=== PATIENT | female | born 1955 | race Caucasian/White ===

== ENCOUNTER 2021-09-28 18:33 | Observation (INO) ==
[2021-09-28] MEDS ORDERED: DILAUDID INJ IVP PRN (20:26)
[2021-09-28] MEDS: D5 1/2 NS 1,000 ML 1,000 ML IV SCH (21:05)
[2021-09-28] MEDS: COLACE CAP 100 MG PO SCH (21:05)
[2021-09-28 21:18] LABS: BASOPHILS # (AUTO) 0.1 X10^3/uL (0.0-0.1); BASOPHILS % (AUTO) 0.7 % (0.2-1.0); EOSINOPHILS # (AUTO) 0.3 x10^3/uL (0.0-0.2); EOSINOPHILS % (AUTO) 3.1 % (0.9-2.9); HEMATOCRIT 40.1 % (36.0-47.0); HEMOGLOBIN 13.7 g/dL (12.0-16.0); LYMPHOCYTES # (AUTO) 2.6 X10^3/uL (1.3-2.9); LYMPHOCYTES % (AUTO) 23.4 % (21.0-51.0); MEAN CORPUSCULAR HEMOGLOBIN 29.9 pg (27.0-34.0); MEAN CORPUSCULAR HGB CONC 34.2 g/dL (33.0-35.0); MEAN CORPUSCULAR VOLUME 87.2 fL (80.0-100.0); MEAN PLATELET VOLUME 7.8 fL (7.4-11.0); MONOCYTES # (AUTO) 1.2 x10^3/uL (0.3-0.8); NEUTROPHILS # (AUTO) 6.9 x10^3/uL (2.2-4.8); NEUTROPHILS % (AUTO) 61.8 % (42.0-75.0); RED BLOOD COUNT 4.59 X10^6/uL (3.5-5.4); RED CELL DISTRIBUTION WIDTH 12.8 % (11.6-16.5); WHITE BLOOD COUNT 11.2 X10^3/uL (3.6-10.0)
[2021-09-28 21:28] LABS: ALANINE AMINOTRANSFERASE 31 Units/L (12-78); ALBUMIN 3.2 g/dL (3.4-5.0); ALKALINE PHOSPHATASE 96 Units/L (46-116); ASPARTATE AMINO TRANSFERASE 16 Units/L (15-37); BLOOD UREA NITROGEN 26 mg/dL (7-18); CALCIUM 9.1 mg/dL (8.5-10.1); CARBON DIOXIDE 29.6 mmol/L (21-32); CHLORIDE 99 mmol/L (98-107); COR CA(FOR HYPOALB) 9.7 mg/dL (8.5-10.1); COR NA(FOR HYPERGLY) 139 mmol/L (136-145); CREATININE 1.07 mg/dL (0.55-1.02); SODIUM 136 mmol/L (136-145); TOTAL PROTEIN 6.9 g/dL (6.4-8.2); eGFR NON BLACK RACES 55 (>60)
[2021-09-28 21:45] VITALS: BMI 29.9
[2021-09-28] MEDS: ANCEF VIAL 1 GRAM IVP SCH ×2 (22:43→22:44)
[2021-09-28] MEDS: ZOFRAN INJ 4 MG VIAL IVP PRN (22:54)
[2021-09-29] MEDS: BETADINE SOLN TOP SCH ×6 (00:37→22:31)
[2021-09-29 05:16] LABS: BASOPHILS # (AUTO) 0.1 X10^3/uL (0.0-0.1); BASOPHILS % (AUTO) 0.5 % (0.2-1.0); EOSINOPHILS # (AUTO) 0.1 x10^3/uL (0.0-0.2); EOSINOPHILS % (AUTO) 1.1 % (0.9-2.9); HEMATOCRIT 36.1 % (36.0-47.0); HEMOGLOBIN 12.3 g/dL (12.0-16.0); LYMPHOCYTES # (AUTO) 2.7 X10^3/uL (1.3-2.9); LYMPHOCYTES % (AUTO) 25.4 % (21.0-51.0); MEAN CORPUSCULAR HEMOGLOBIN 29.8 pg (27.0-34.0); MEAN CORPUSCULAR VOLUME 87.6 fL (80.0-100.0); MONOCYTES % (AUTO) 9.3 % (0.0-13.0); NEUTROPHILS # (AUTO) 6.8 x10^3/uL (2.2-4.8); NEUTROPHILS % (AUTO) 63.7 % (42.0-75.0); RED BLOOD COUNT 4.12 X10^6/uL (3.5-5.4); RED CELL DISTRIBUTION WIDTH 12.6 % (11.6-16.5); WHITE BLOOD COUNT 10.7 X10^3/uL (3.6-10.0)
[2021-09-29 05:27] LABS: ALANINE AMINOTRANSFERASE 28 Units/L (12-78); ALBUMIN 2.9 g/dL (3.4-5.0); ALKALINE PHOSPHATASE 85 Units/L (46-116); ASPARTATE AMINO TRANSFERASE 14 Units/L (15-37); BLOOD UREA NITROGEN 26 mg/dL (7-18); CALCIUM 8.8 mg/dL (8.5-10.1); CARBON DIOXIDE 29.7 mmol/L (21-32); CHLORIDE 100 mmol/L (98-107); COR CA(FOR HYPOALB) 9.7 mg/dL (8.5-10.1); COR NA(FOR HYPERGLY) 139 mmol/L (136-145); CREATININE 1.07 mg/dL (0.55-1.02); SODIUM 135 mmol/L (136-145); TOTAL PROTEIN 6.2 g/dL (6.4-8.2); eGFR NON BLACK RACES 55 (>60)
[2021-09-29] MEDS: ANCEF VIAL 1 GRAM IVP SCH (05:40)
[2021-09-29] MEDS: PERCOCET TAB 5/325 MG PO PRN ×4 (06:11→18:17)
[2021-09-29] MEDS: COLACE CAP 100 MG PO SCH ×2 (08:06→21:49)
[2021-09-29] MEDS: D5 1/2 NS 1,000 ML 1,000 ML IV SCH (08:10)
--- NOTE | 2021-09-29 10:28 | DR.PROGNOT ---
Hospital Progress Notes - Progress Note for Day of: Progress Note Date: 09/29/21 - Chief Complaint Chief Complaint: less pain today .. mild bleeding .. afebrile . - Past Medical Family Social History Allergies: Allergies aspirin Allergy (Intermediate, Verified 09/21/21 07:05) stomach problems "Stomach feels like it is on fire" - Review Of Systems ROS: No change since H&P - Vital Signs Vital Signs: Temperature 97.9 F Pulse Rate [Apical] 79 Respiratory Rate 18 Blood Pressure [Right Arm] 111/55 Blood Pressure 111/59 O2 Sat by Pulse Oximetry 96 - Physical Exam Oriented: Normal Eyes: Normal Ear: Normal Nose: Normal Throat: Normal Respiratory: Normal Cardiovascular: Normal : Normal GI:Auscultation: Normal GI:Palpation: Normal GI: Tenderness: Normal Psychiatric: Normal Speech Pattern: Clear, Appropriate - Laboratory and Diagnostics Result Diagrams: 09/29/21 04:30 09/29/21 04:30 Labs: Laboratory WBC 10.7 X10^3/uL (3.6-10.0) H 09/29/21 04:30 RBC 4.12 X10^6/uL (3.5-5.4) 09/29/21 04:30 Hgb 12.3 g/dL (12.0-16.0) 09/29/21 04:30 Hct 36.1 % (36.0-47.0) 09/29/21 04:30 MCV 87.6 fL (80.0-100.0) 09/29/21 04:30 MCH 29.8 pg (27.0-34.0) 09/29/21 04:30 MCHC 34.0 g/dL (33.0-35.0) 09/29/21 04:30 RDW 12.6 % (11.6-16.5) 09/29/21 04:30 Plt Count 293 X10^3/uL (150.0-450.0) 09/29/21 04:30 MPV 8.0 fL (7.4-11.0) 09/29/21 04:30 Neut % (Auto) 63.7 % (42.0-75.0) 09/29/21 04:30 Lymph % (Auto) 25.4 % (21.0-51.0) 09/29/21 04:30 [place] % (Auto) 9.3 % (0.0-13.0) 09/29/21 04:30 Eos % (Auto) 1.1 % (0.9-2.9) 09/29/21 04:30 Baso % (Auto) 0.5 % (0.2-1.0) 09/29/21 04:30 Neut # (Auto) 6.8 x10^3/uL (2.2-4.8) H 09/29/21 04:30 Lymph # (Auto) 2.7 X10^3/uL (1.3-2.9) 09/29/21 04:30 [place] # (Auto) 1.0 x10^3/uL (0.3-0.8) H 09/29/21 04:30 Eos # (Auto) 0.1 x10^3/uL (0.0-0.2) 09/29/21 04:30 Baso # (Auto) 0.1 X10^3/uL (0.0-0.1) 09/29/21 04:30 Absolute Nucleated RBC 0.0 /100WBC 09/29/21 04:30 Sodium 135 mmol/L (136-145) L 09/29/21 04:30 Corrected Sodium 139 mmol/L (136-145) 09/29/21 04:30 Potassium 4.4 mmol/L (3.5-5.1) 09/29/21 04:30 Chloride 100 mmol/L (98-107) 09/29/21 04:30 Carbon Dioxide 29.7 mmol/L (21-32) 09/29/21 04:30 BUN 26 mg/dL (7-18) H 09/29/21 04:30 Creatinine 1.07 mg/dL (0.55-1.02) H 09/29/21 04:30 Est GFR (MDRD) Af Amer > 60 (>60) 09/29/21 04:30 Est GFR (MDRD) Non-Af 55 (>60) L 09/29/21 04:30 Glucose 249 mg/dL (65-99) H 09/29/21 04:30 Calcium 8.8 mg/dL (8.5-10.1) 09/29/21 04:30 Corrected Calcium 9.7 mg/dL (8.5-10.1) 09/29/21 04:30 Total Bilirubin 0.20 mg/dL (0.2-1.0) 09/29/21 04:30 AST 14 Units/L (15-37) L 09/29/21 04:30 ALT 28 Units/L (12-78) 09/29/21 04:30 Alkaline Phosphatase 85 Units/L (46-116) 09/29/21 04:30 Total Protein 6.2 g/dL (6.4-8.2) L 09/29/21 04:30 Albumin 2.9 g/dL (3.4-5.0) L 09/29/21 04:30 Globulin 3.3 g/dL (2.5-4.5) 09/29/21 04:30 Albumin/Globulin Ratio 0.9 Ratio (1.1-2.1) L 09/29/21 04:30 SARS-CoV-2 (PCR) Negative (NEGATIVE) 09/28/21 19:40 - Assessment and Plan 1: severe rectalpain and bleeding .. s/p recent hemorrhoidectomy , partial sphincterotomy . HTYN, DM , anxiety .. on sitz bath , pain control , IVF and ABT ..
[2021-09-29] MEDS ORDERED: NS 100 ML IV 100 ML ONE (13:17)
[2021-09-29] MEDS: ANCEF VIAL 1 GRAM 1 G in NS 100 ML IV 100 ML IV SCH ×2 (13:25→21:49)
[2021-09-29] MEDS: DERMOPLAST PAIN RELIEF SPRAY TOP PRN (15:08)
[2021-09-29] MEDS: MORPHINE SULFATE INJ 4 MG IVP PRN ×2 (15:09→19:17)
[2021-09-29] MEDS: ZOFRAN INJ 4 MG VIAL IVP PRN (15:20)
[2021-09-29] MEDS: NovoLIN R (or HumuLIN R) SUBCUT PRN (16:52)
[2021-09-29] MEDS: NS 1/2 1,000 ML IV 1,000 ML IV SCH (18:08)
[2021-09-29] MEDS ORDERED: NS 1/2 1,000 ML IV 1,000 ML IV ONE (18:09)
[2021-09-29] MEDS: SNACK - Diabetic Appropriate PO SCH (20:30)
[2021-09-30] MEDS: PERCOCET TAB 5/325 MG PO PRN ×2 (03:00→08:41)
[2021-09-30 05:24] LABS: BASOPHILS % (AUTO) 0.5 % (0.2-1.0); EOSINOPHILS # (AUTO) 0.3 x10^3/uL (0.0-0.2); EOSINOPHILS % (AUTO) 3.5 % (0.9-2.9); HEMATOCRIT 36.7 % (36.0-47.0); HEMOGLOBIN 12.3 g/dL (12.0-16.0); LYMPHOCYTES % (AUTO) 34.3 % (21.0-51.0); MEAN CORPUSCULAR HEMOGLOBIN 29.6 pg (27.0-34.0); MEAN CORPUSCULAR HGB CONC 33.6 g/dL (33.0-35.0); MEAN CORPUSCULAR VOLUME 88.1 fL (80.0-100.0); MEAN PLATELET VOLUME 8.4 fL (7.4-11.0); MONOCYTES # (AUTO) 0.9 x10^3/uL (0.3-0.8); MONOCYTES % (AUTO) 10.7 % (0.0-13.0); NEUTROPHILS # (AUTO) 4.5 x10^3/uL (2.2-4.8); RED BLOOD COUNT 4.16 X10^6/uL (3.5-5.4); RED CELL DISTRIBUTION WIDTH 12.5 % (11.6-16.5); WHITE BLOOD COUNT 8.8 X10^3/uL (3.6-10.0)
[2021-09-30] MEDS: BETADINE SOLN TOP SCH ×3 (05:28→21:25)
[2021-09-30 05:46] LABS: ALANINE AMINOTRANSFERASE 24 Units/L (12-78); ALBUMIN 2.9 g/dL (3.4-5.0); ALKALINE PHOSPHATASE 83 Units/L (46-116); ASPARTATE AMINO TRANSFERASE 14 Units/L (15-37); BLOOD UREA NITROGEN 17 mg/dL (7-18); CALCIUM 8.3 mg/dL (8.5-10.1); CARBON DIOXIDE 29.6 mmol/L (21-32); CHLORIDE 100 mmol/L (98-107); COR CA(FOR HYPOALB) 9.2 mg/dL (8.5-10.1); COR NA(FOR HYPERGLY) 142 mmol/L (136-145); CREATININE 1.04 mg/dL (0.55-1.02); SODIUM 137 mmol/L (136-145); TOTAL PROTEIN 6.2 g/dL (6.4-8.2); eGFR NON BLACK RACES 57 (>60)
[2021-09-30] MEDS: ANCEF VIAL 1 GRAM 1 G in NS 100 ML IV 100 ML IV SCH ×3 (06:11→21:25)
[2021-09-30] MEDS ORDERED: NS 1/2 1,000 ML IV 1,000 ML IV ONE ×2 (06:15→20:40)
[2021-09-30] MEDS: NovoLIN R (or HumuLIN R) SUBCUT PRN ×2 (06:22→16:44)
[2021-09-30] MEDS: NS 1/2 1,000 ML IV 1,000 ML IV SCH ×2 (06:23→21:00)
[2021-09-30] MEDS: COLACE CAP 100 MG PO SCH ×2 (10:14→21:23)
[2021-09-30] MEDS ORDERED: PATIENT'S HOME MEDICATION (Dexlansoprazole 60 mg capsule,biphase delayed releas) PO SCH (10:15)
[2021-09-30] MEDS ORDERED: WELLBUTRIN XL 300 MG (DAILY) PO ONE (10:24)
[2021-09-30] MEDS ORDERED: AMARYL TAB 4 MG ONE (10:24)
[2021-09-30] MEDS ORDERED: HYDROCHLOROTHIAZIDE 25 MG TAB ONE (10:24)
[2021-09-30] MEDS: AMARYL TAB 4 MG PO SCH ×2 (10:41→11:03)
[2021-09-30] MEDS: HYDROCHLOROTHIAZIDE 25 MG TAB PO SCH ×2 (10:41→11:05)
[2021-09-30] MEDS: WELLBUTRIN XL 300 MG (DAILY) PO SCH ×3 (10:42→22:13)
[2021-09-30] MEDS: PROTONIX INJ 40 MG VIAL IVP SCH ×3 (10:42→21:24)
[2021-09-30] MEDS: MORPHINE SULFATE INJ 4 MG IVP PRN ×2 (10:43→16:05)
[2021-09-30] MEDS ORDERED: TORADOL 15 MG VIAL IVP PRN (10:55)
[2021-09-30] MEDS ORDERED: ZESTRIL TAB 10 MG PO SCH (11:00)
--- NOTE | 2021-09-30 11:21 | DR.CONSULT ---
CONSULT Consultation for Day of: Date: 09/30/21 Chief Complaint Chief Complaint: Rectal pain/bleeding Allergies Allergies Allergy/AdvReac Type Severity Reaction Status Date / Time aspirin Allergy Intermediate stomach Verified 09/21/21 07:05 problems History of Present Illness History of Present Illness: Pt is a 65 year old female admitted for rectal pain/bleeding status post recent hemorrhoidectomy and fissuretomy. Consulted by surgery for medical management on hypertension and diabetes mellitus. Pt is currently on morphine prn and oxycodone prn for pain control and IVF 1/2 NS@80ml/h. She is also receiving IV antibiotics: Ancef and sitz bath. Surgery noted no signs of active bleeding. Labs: Wbc 8.8, Hgb 12.3, Plt 293 Na 137, K 4.0, Creatinine 1.04, Glucose 298. Will restart home mediations that include Wellbutrin, Glimepiride, HCTZ, and Lisinopril. Continue with FSBG ACHS and SSI. Will continue to monitor and follow up labs in the morning. Past Medical History Past Medical History: Diabetes and Hypertension Past Surgical History Surgical History: Hysterectomy, Ortho Surgery and Other Family History Family Medical History: Diabetes Mellitus, Cancer, Coronary Artery Disease and Hypertension Social History Alcohol Use: None Drug Use: None Medications Home Medications: aspirin Allergy (Intermediate, Verified 09/21/21 07:05) stomach problems CONTINUE taking the following medications bempedoic acid [Nexletol] 180 mg PO DAILY 09/29/21 [History] bupropion HCl 300 mg PO DAILY 09/29/21 [History] cholecalciferol (vitamin D3) [Vitamin D3] 50 mcg PO DAILY 09/29/21 [History] dexlansoprazole 60 mg PO DAILY 09/29/21 [History] docusate sodium 100 mg PO BID 09/29/21 [History] glimepiride 4 mg PO DAILY 09/29/21 [History] hydrochlorothiazide 25 mg PO DAILY 09/29/21 [History] lisinopril 10 mg PO DAILY 09/29/21 [History] oxycodone-acetaminophen 1 tab PO Q4H PRN 09/29/21 [History] pantoprazole 40 mg PO BID 09/29/21 [History] valacyclovir 500 mg PO DAILY 09/29/21 [History] Review of Systems Constitutional: No Symptoms Reported Eyes: No Symptoms Reported ENT: No Symptoms Reported Respiratory: No Symptoms Reported Cardiovascular: No Symptoms Reported Gastrointestinal: No Symptoms Reported Genitourinary: Other (rectal pain) Musculoskeletal: No Symptoms Reported Skin: No Symptoms Reported Neurological: No Symptoms Reported Physical Exam Vital Signs: Temperature 98.8 F Pulse Rate [Apical] 90 Respiratory Rate 22 Blood Pressure [Right Arm] 132/66 Blood Pressure 111/59 O2 Sat by Pulse Oximetry 92 Oriented: Normal Eyes: Normal Ear: Normal Nose: Normal Respiratory: Clear Throughout Cardiovascular: Normal : Other (rectal pain) Auscultation: Bowel Sounds: Normal Palpation: Normal Tenderness: Normal Skin: Normal Musculoskeletal: Normal Psychiatric: Normal Mood Description: Calm Speech Pattern: Clear Plan (1) Rectal pain: Status: Acute (2) Hemorrhoid: Status: Acute Qualifiers: Qualified Code(s): K64.9 - Unspecified hemorrhoids
--- NOTE | 2021-09-30 11:23 | DR.PROGNOT ---
Hospital Progress Notes - Progress Note for Day of: Progress Note Date: 09/30/21 - Chief Complaint Chief Complaint: still having severe anal pain today with moderate bleeding .. having problem with BM . BS is 298 . afebrile . - Past Medical Family Social History Allergies: Allergies aspirin Allergy (Intermediate, Verified 09/21/21 07:05) stomach problems "Stomach feels like it is on fire" - Review Of Systems ROS: No change since H&P - Vital Signs Vital Signs: Temperature 98.8 F Pulse Rate [Apical] 90 Respiratory Rate 22 Blood Pressure [Right Arm] 132/66 Blood Pressure 111/59 O2 Sat by Pulse Oximetry 92 - Physical Exam Oriented: Normal Eyes: Normal Ear: Normal Nose: Normal Throat: Normal Respiratory: Normal Cardiovascular: Normal : Normal GI:Auscultation: Normal GI:Palpation: Normal GI: Tenderness: Normal, Other (rectal exam very tender .. no abscess or necrosis .. ) Psychiatric: Normal Speech Pattern: Clear, Appropriate - Laboratory and Diagnostics Result Diagrams: 09/30/21 04:15 09/30/21 04:15 Labs: Laboratory WBC 8.8 X10^3/uL (3.6-10.0) 09/30/21 04:15 RBC 4.16 X10^6/uL (3.5-5.4) 09/30/21 04:15 Hgb 12.3 g/dL (12.0-16.0) 09/30/21 04:15 Hct 36.7 % (36.0-47.0) 09/30/21 04:15 MCV 88.1 fL (80.0-100.0) 09/30/21 04:15 MCH 29.6 pg (27.0-34.0) 09/30/21 04:15 MCHC 33.6 g/dL (33.0-35.0) 09/30/21 04:15 RDW 12.5 % (11.6-16.5) 09/30/21 04:15 Plt Count 293 X10^3/uL (150.0-450.0) 09/30/21 04:15 MPV 8.4 fL (7.4-11.0) 09/30/21 04:15 Neut % (Auto) 51.0 % (42.0-75.0) 09/30/21 04:15 Lymph % (Auto) 34.3 % (21.0-51.0) 09/30/21 04:15 [place] % (Auto) 10.7 % (0.0-13.0) 09/30/21 04:15 Eos % (Auto) 3.5 % (0.9-2.9) H 09/30/21 04:15 Baso % (Auto) 0.5 % (0.2-1.0) 09/30/21 04:15 Neut # (Auto) 4.5 x10^3/uL (2.2-4.8) 09/30/21 04:15 Lymph # (Auto) 3.0 X10^3/uL (1.3-2.9) H 09/30/21 04:15 [place] # (Auto) 0.9 x10^3/uL (0.3-0.8) H 09/30/21 04:15 Eos # (Auto) 0.3 x10^3/uL (0.0-0.2) H 09/30/21 04:15 Baso # (Auto) 0.0 X10^3/uL (0.0-0.1) 09/30/21 04:15 Absolute Nucleated RBC 0.1 /100WBC 09/30/21 04:15 Sodium 137 mmol/L (136-145) 09/30/21 04:15 Corrected Sodium 142 mmol/L (136-145) 09/30/21 04:15 Potassium 4.0 mmol/L (3.5-5.1) 09/30/21 04:15 Chloride 100 mmol/L (98-107) 09/30/21 04:15 Carbon Dioxide 29.6 mmol/L (21-32) 09/30/21 04:15 BUN 17 mg/dL (7-18) 09/30/21 04:15 Creatinine 1.04 mg/dL (0.55-1.02) H 09/30/21 04:15 Est GFR (MDRD) Af Amer > 60 (>60) 09/30/21 04:15 Est GFR (MDRD) Non-Af 57 (>60) L 09/30/21 04:15 Glucose 298 mg/dL (65-99) H 09/30/21 04:15 Calcium 8.3 mg/dL (8.5-10.1) L 09/30/21 04:15 Corrected Calcium 9.2 mg/dL (8.5-10.1) 09/30/21 04:15 Total Bilirubin 0.20 mg/dL (0.2-1.0) 09/30/21 04:15 AST 14 Units/L (15-37) L 09/30/21 04:15 ALT 24 Units/L (12-78) 09/30/21 04:15 Alkaline Phosphatase 83 Units/L (46-116) 09/30/21 04:15 Total Protein 6.2 g/dL (6.4-8.2) L 09/30/21 04:15 Albumin 2.9 g/dL (3.4-5.0) L 09/30/21 04:15 Globulin 3.3 g/dL (2.5-4.5) 09/30/21 04:15 Albumin/Globulin Ratio 0.9 Ratio (1.1-2.1) L 09/30/21 04:15 SARS-CoV-2 (PCR) Negative (NEGATIVE) 09/28/21 19:40 - Assessment and Plan 1: severe rectal pain and bleeding .. s/p recent hemorrhoidectomy , partial sphincterotomy . HTN, DM , anxiety .. on sitz bath , pain control , IVF and ABT and diabetic control ..
[2021-09-30] MEDS: MILK OF MAGNESIA PO SCH (11:49)
[2021-09-30] MEDS: DERMOPLAST PAIN RELIEF SPRAY TOP PRN (13:29)
[2021-09-30] MEDS ORDERED: SNACK - Diabetic Appropriate PO SCH (20:00)
[2021-09-30] MEDS: TORADOL TAB PO PRN (20:10)
[2021-09-30] MEDS: SNACK - Diabetic Appropriate PO SCH (21:23)
[2021-09-30] MEDS ORDERED: AMARYL TAB 4 MG PO SCH (22:00)
[2021-09-30] MEDS: ZESTRIL TAB 10 MG PO SCH (22:15)
[2021-10-01] MEDS: MORPHINE SULFATE INJ 4 MG IVP PRN ×3 (03:15→18:16)
[2021-10-01 04:54] LABS: BASOPHILS % (AUTO) 0.6 % (0.2-1.0); EOSINOPHILS # (AUTO) 0.3 x10^3/uL (0.0-0.2); EOSINOPHILS % (AUTO) 3.5 % (0.9-2.9); HEMATOCRIT 35.4 % (36.0-47.0); HEMOGLOBIN 12.2 g/dL (12.0-16.0); LYMPHOCYTES # (AUTO) 2.4 X10^3/uL (1.3-2.9); LYMPHOCYTES % (AUTO) 28.5 % (21.0-51.0); MEAN CORPUSCULAR HGB CONC 34.5 g/dL (33.0-35.0); MEAN CORPUSCULAR VOLUME 86.8 fL (80.0-100.0); MEAN PLATELET VOLUME 8.1 fL (7.4-11.0); MONOCYTES % (AUTO) 12.2 % (0.0-13.0); NEUTROPHILS # (AUTO) 4.7 x10^3/uL (2.2-4.8); NEUTROPHILS % (AUTO) 55.2 % (42.0-75.0); RED BLOOD COUNT 4.08 X10^6/uL (3.5-5.4); RED CELL DISTRIBUTION WIDTH 12.6 % (11.6-16.5); WHITE BLOOD COUNT 8.5 X10^3/uL (3.6-10.0)
[2021-10-01 05:05] LABS: ALANINE AMINOTRANSFERASE 22 Units/L (12-78); ALBUMIN 2.8 g/dL (3.4-5.0); ALKALINE PHOSPHATASE 79 Units/L (46-116); ASPARTATE AMINO TRANSFERASE 17 Units/L (15-37); BLOOD UREA NITROGEN 18 mg/dL (7-18); CALCIUM 8.4 mg/dL (8.5-10.1); CARBON DIOXIDE 32.3 mmol/L (21-32); CHLORIDE 102 mmol/L (98-107); COR CA(FOR HYPOALB) 9.4 mg/dL (8.5-10.1); COR NA(FOR HYPERGLY) 141 mmol/L (136-145); CREATININE 0.91 mg/dL (0.55-1.02); SODIUM 139 mmol/L (136-145); eGFR NON BLACK RACES > 60 (>60)
[2021-10-01] MEDS: BETADINE SOLN TOP SCH ×3 (05:42→22:00)
[2021-10-01] MEDS: ANCEF VIAL 1 GRAM 1 G in NS 100 ML IV 100 ML IV SCH ×3 (06:06→21:08)
[2021-10-01] MEDS ORDERED: NS 1/2 1,000 ML IV 1,000 ML IV ONE (08:11)
--- NOTE | 2021-10-01 08:16 | PCM.PROG ---
Progress Note Progress Note for Day of Date of Exam: 10/01/21 Subjective Subjective: Pt is a 65 year old female admitted for rectal pain/bleeding status post recent hemorrhoidectomy and fissuretomy. Consulted by surgery for medical management on hypertension and diabetes mellitus. Pt is currently on morphine prn and oxycodone prn for pain control and IVF 1/2 NS@80ml/h. She is also receiving IV antibiotics: Ancef and sitz bath. Surgery noted no signs of active bleeding. Labs: Wbc 8.5, Hgb 12.2, Plt 274, Na 139, K 4.3, Creatinine 0.91, Glucose 195. She is taking Wellbutrin, Glimepiride, HCTZ, and Lisinopril. Will increase glimepiride to bid dosing after reviewing glucose levels, she is unable to tolerate metformin. Continue with FSBG ACHS and SSI. Pt is otherwise stable, medicine signing off. Past Medical Family Social History Past Med/Fam/Surg Hx: No changes since H&P Allergies: Allergies aspirin Allergy (Intermediate, Verified 09/21/21 07:05) stomach problems "Stomach feels like it is on fire" Review of Systems ROS: No change since H&P Vital Signs and I&O's Vital Signs: Temperature 97.9 F Pulse Rate [Apical] 80 Respiratory Rate 20 Blood Pressure [Left Arm] 130/63 Blood Pressure [Right Arm] 147/76 Blood Pressure 111/59 O2 Sat by Pulse Oximetry 94 Intake and Output: Intake & Output 09/28/21 09/29/21 09/30/21 10/01/21 23:59 23:59 23:59 23:59 Intake Total 480 / 480 3306 / 3306 2190 / 2190 120 / 120 Balance 480 / 480 3306 / 3306 2190 / 2190 120 / 120 Physical Exam Oriented: Normal Eyes: Normal Ear: Normal Nose: Normal Throat: Normal Respiratory: Normal Cardiovascular: Normal : Other (rectal pain) Auscultation: Bowel Sounds: Normal Tenderness: Normal Skin: Normal Musculoskeletal: Normal Psychiatric: Normal Mood Description: Calm Speech Pattern: Clear and Appropriate Laboratory and Diagnostics Result Diagrams: 10/01/21 04:00 10/01/21 04:00 Labs: Laboratory WBC 8.5 X10^3/uL (3.6-10.0) 10/01/21 04:00 RBC 4.08 X10^6/uL (3.5-5.4) 10/01/21 04:00 Hgb 12.2 g/dL (12.0-16.0) 10/01/21 04:00 Hct 35.4 % (36.0-47.0) L 10/01/21 04:00 MCV 86.8 fL (80.0-100.0) 10/01/21 04:00 MCH 30.0 pg (27.0-34.0) 10/01/21 04:00 MCHC 34.5 g/dL (33.0-35.0) 10/01/21 04:00 RDW 12.6 % (11.6-16.5) 10/01/21 04:00 Plt Count 274 X10^3/uL (150.0-450.0) 10/01/21 04:00 MPV 8.1 fL (7.4-11.0) 10/01/21 04:00 Neut % (Auto) 55.2 % (42.0-75.0) 10/01/21 04:00 Lymph % (Auto) 28.5 % (21.0-51.0) 10/01/21 04:00 [place] % (Auto) 12.2 % (0.0-13.0) 10/01/21 04:00 Eos % (Auto) 3.5 % (0.9-2.9) H 10/01/21 04:00 Baso % (Auto) 0.6 % (0.2-1.0) 10/01/21 04:00 Neut # (Auto) 4.7 x10^3/uL (2.2-4.8) 10/01/21 04:00 Lymph # (Auto) 2.4 X10^3/uL (1.3-2.9) 10/01/21 04:00 [place] # (Auto) 1.0 x10^3/uL (0.3-0.8) H 10/01/21 04:00 Eos # (Auto) 0.3 x10^3/uL (0.0-0.2) H 10/01/21 04:00 Baso # (Auto) 0.0 X10^3/uL (0.0-0.1) 10/01/21 04:00 Absolute Nucleated RBC 0.0 /100WBC 10/01/21 04:00 Sodium 139 mmol/L (136-145) 10/01/21 04:00 Corrected Sodium 141 mmol/L (136-145) 10/01/21 04:00 Potassium 4.3 mmol/L (3.5-5.1) 10/01/21 04:00 Chloride 102 mmol/L (98-107) 10/01/21 04:00 Carbon Dioxide 32.3 mmol/L (21-32) H 10/01/21 04:00 BUN 18 mg/dL (7-18) 10/01/21 04:00 Creatinine 0.91 mg/dL (0.55-1.02) 10/01/21 04:00 Est GFR (MDRD) Af Amer > 60 (>60) 10/01/21 04:00 Est GFR (MDRD) Non-Af > 60 (>60) 10/01/21 04:00 Glucose 195 mg/dL (65-99) H 10/01/21 04:00 Calcium 8.4 mg/dL (8.5-10.1) L 10/01/21 04:00 Corrected Calcium 9.4 mg/dL (8.5-10.1) 10/01/21 04:00 Total Bilirubin 0.10 mg/dL (0.2-1.0) L 10/01/21 04:00 AST 17 Units/L (15-37) 10/01/21 04:00 ALT 22 Units/L (12-78) 10/01/21 04:00 Alkaline Phosphatase 79 Units/L (46-116) 10/01/21 04:00 Total Protein 6.0 g/dL (6.4-8.2) L 10/01/21 04:00 Albumin 2.8 g/dL (3.4-5.0) L 10/01/21 04:00 Globulin 3.2 g/dL (2.5-4.5) 10/01/21 04:00 Albumin/Globulin Ratio 0.9 Ratio (1.1-2.1) L 10/01/21 04:00 SARS-CoV-2 (PCR) Negative (NEGATIVE) 09/28/21 19:40 Plan (1) Rectal pain: Status: Acute (2) Hemorrhoid: Status: Acute Qualifiers: Qualified Code(s): K64.9 - Unspecified hemorrhoids (3) Diabetes mellitus: Status: Acute (4) Hypertension: Status: Acute
[2021-10-01] MEDS: PROTONIX INJ 40 MG VIAL IVP SCH ×2 (08:34→21:07)
[2021-10-01] MEDS: AMARYL TAB 4 MG PO SCH ×2 (08:35→21:05)
[2021-10-01] MEDS: COLACE CAP 100 MG PO SCH ×2 (08:35→21:04)
[2021-10-01] MEDS: HYDROCHLOROTHIAZIDE 25 MG TAB PO SCH (08:35)
[2021-10-01] MEDS: MILK OF MAGNESIA PO SCH (08:41)
[2021-10-01] MEDS: NS 1/2 1,000 ML IV 1,000 ML IV SCH ×3 (11:02→22:03)
[2021-10-01] MEDS: NovoLIN R (or HumuLIN R) SUBCUT PRN ×2 (11:12→18:03)
[2021-10-01] MEDS: PERCOCET TAB 5/325 MG PO PRN ×2 (15:00→21:04)
--- NOTE | 2021-10-01 15:09 | DR.PROGNOT ---
Hospital Progress Notes - Progress Note for Day of: Progress Note Date: 10/01/21 - Chief Complaint Chief Complaint: still having severe anal pain requiring strong pain medications . moderate bleeding with BM .. BS is 195. afebrile . - Past Medical Family Social History Past Med/Fam/Surg Hx: No changes since H&P Allergies: Allergies aspirin Allergy (Intermediate, Verified 09/21/21 07:05) stomach problems "Stomach feels like it is on fire" - Review Of Systems ROS: No change since H&P - Vital Signs Vital Signs: Temperature 98.2 F Pulse Rate [Apical] 84 Respiratory Rate 22 Blood Pressure [Left Arm] 133/58 Blood Pressure [Right Arm] 147/76 Blood Pressure 111/59 O2 Sat by Pulse Oximetry 95 - Physical Exam Oriented: Normal Eyes: Normal Ear: Normal Nose: Normal Throat: Normal Respiratory: Normal Cardiovascular: Normal : Other (rectal pain) GI:Auscultation: Normal GI:Palpation: Normal GI: Tenderness: Normal Skin: Normal, Other (rectal exam : s/p recent surgery ..very tender , no abscess or active infection ) Musculoskeletal: Normal Psychiatric: Normal Mood Description: Calm Speech Pattern: Clear, Appropriate - Laboratory and Diagnostics Result Diagrams: 10/01/21 04:00 10/01/21 04:00 Labs: Laboratory WBC 8.5 X10^3/uL (3.6-10.0) 10/01/21 04:00 RBC 4.08 X10^6/uL (3.5-5.4) 10/01/21 04:00 Hgb 12.2 g/dL (12.0-16.0) 10/01/21 04:00 Hct 35.4 % (36.0-47.0) L 10/01/21 04:00 MCV 86.8 fL (80.0-100.0) 10/01/21 04:00 MCH 30.0 pg (27.0-34.0) 10/01/21 04:00 MCHC 34.5 g/dL (33.0-35.0) 10/01/21 04:00 RDW 12.6 % (11.6-16.5) 10/01/21 04:00 Plt Count 274 X10^3/uL (150.0-450.0) 10/01/21 04:00 MPV 8.1 fL (7.4-11.0) 10/01/21 04:00 Neut % (Auto) 55.2 % (42.0-75.0) 10/01/21 04:00 Lymph % (Auto) 28.5 % (21.0-51.0) 10/01/21 04:00 [place] % (Auto) 12.2 % (0.0-13.0) 10/01/21 04:00 Eos % (Auto) 3.5 % (0.9-2.9) H 10/01/21 04:00 Baso % (Auto) 0.6 % (0.2-1.0) 10/01/21 04:00 Neut # (Auto) 4.7 x10^3/uL (2.2-4.8) 10/01/21 04:00 Lymph # (Auto) 2.4 X10^3/uL (1.3-2.9) 10/01/21 04:00 [place] # (Auto) 1.0 x10^3/uL (0.3-0.8) H 10/01/21 04:00 Eos # (Auto) 0.3 x10^3/uL (0.0-0.2) H 10/01/21 04:00 Baso # (Auto) 0.0 X10^3/uL (0.0-0.1) 10/01/21 04:00 Absolute Nucleated RBC 0.0 /100WBC 10/01/21 04:00 Sodium 139 mmol/L (136-145) 10/01/21 04:00 Corrected Sodium 141 mmol/L (136-145) 10/01/21 04:00 Potassium 4.3 mmol/L (3.5-5.1) 10/01/21 04:00 Chloride 102 mmol/L (98-107) 10/01/21 04:00 Carbon Dioxide 32.3 mmol/L (21-32) H 10/01/21 04:00 BUN 18 mg/dL (7-18) 10/01/21 04:00 Creatinine 0.91 mg/dL (0.55-1.02) 10/01/21 04:00 Est GFR (MDRD) Af Amer > 60 (>60) 10/01/21 04:00 Est GFR (MDRD) Non-Af > 60 (>60) 10/01/21 04:00 Glucose 195 mg/dL (65-99) H 10/01/21 04:00 Calcium 8.4 mg/dL (8.5-10.1) L 10/01/21 04:00 Corrected Calcium 9.4 mg/dL (8.5-10.1) 10/01/21 04:00 Total Bilirubin 0.10 mg/dL (0.2-1.0) L 10/01/21 04:00 AST 17 Units/L (15-37) 10/01/21 04:00 ALT 22 Units/L (12-78) 10/01/21 04:00 Alkaline Phosphatase 79 Units/L (46-116) 10/01/21 04:00 Total Protein 6.0 g/dL (6.4-8.2) L 10/01/21 04:00 Albumin 2.8 g/dL (3.4-5.0) L 10/01/21 04:00 Globulin 3.2 g/dL (2.5-4.5) 10/01/21 04:00 Albumin/Globulin Ratio 0.9 Ratio (1.1-2.1) L 10/01/21 04:00 SARS-CoV-2 (PCR) Negative (NEGATIVE) 09/28/21 19:40 - Assessment and Plan 1: severe rectal pain and bleeding .. s/p recent hemorrhoidectomy , partial sphincterotomy . HTN, DM , anxiety .. on sitz bath , pain control , IVF , ABT and diabetic control ..
[2021-10-01] MEDS: SNACK - Diabetic Appropriate PO SCH (20:35)
[2021-10-01] MEDS: ZESTRIL TAB 10 MG PO SCH (21:05)
[2021-10-01] MEDS: WELLBUTRIN XL 300 MG (DAILY) PO SCH (21:05)
[2021-10-02] MEDS: MORPHINE SULFATE INJ 4 MG IVP PRN ×2 (00:28→05:36)
[2021-10-02] MEDS ORDERED: NS 1/2 1,000 ML IV 1,000 ML IV ONE (02:19)
[2021-10-02] MEDS: PERCOCET TAB 5/325 MG PO PRN (03:35)
[2021-10-02] MEDS: NS 1/2 1,000 ML IV 1,000 ML IV SCH (03:48)
[2021-10-02] MEDS: ANCEF VIAL 1 GRAM 1 G in NS 100 ML IV 100 ML IV SCH (05:27)
[2021-10-02] MEDS: NovoLIN R (or HumuLIN R) SUBCUT PRN (05:36)
[2021-10-02] MEDS: BETADINE SOLN TOP SCH (06:10)
[2021-10-02 08:19] VITALS: BP 159/76
[2021-10-02] MEDS: COLACE CAP 100 MG PO SCH (08:48)
[2021-10-02] MEDS: AMARYL TAB 4 MG PO SCH (08:48)
[2021-10-02] MEDS: HYDROCHLOROTHIAZIDE 25 MG TAB PO SCH (08:48)
[2021-10-02] MEDS: PROTONIX INJ 40 MG VIAL IVP SCH (08:50)
[2021-10-02] MEDS: MILK OF MAGNESIA PO SCH (08:50)
[2021-10-02] MEDS: TORADOL TAB PO PRN (09:09)
[2021-10-02] MEDS: ZOFRAN INJ 4 MG VIAL IVP PRN (09:10)
== END 2021-10-02 09:25 | disposition home or self-care (01) ==
LOC: MED/SURG
PROVIDERS: ADMIT Surgery; ATTEND Surgery
DX: E11.65 Type 2 diabetes mellitus with hyperglycemia; K62.89 Other specified diseases of anus and rectum; K62.5 Hemorrhage of anus and rectum; F41.8 Other specified anxiety disorders; K21.9 Gastro-esophageal reflux disease without esophagitis; Z98.890 Other specified postprocedural states; I10 Essential (primary) hypertension; F32.89 Other specified depressive episodes; E78.2 Mixed hyperlipidemia

== ENCOUNTER 2021-10-06 19:18 | Observation (INO) ==
[2021-10-06 20:31] LABS: BASOPHILS # (AUTO) 0.1 X10^3/uL (0.0-0.1); BASOPHILS % (AUTO) 0.7 % (0.2-1.0); EOSINOPHILS # (AUTO) 0.2 x10^3/uL (0.0-0.2); EOSINOPHILS % (AUTO) 2.3 % (0.9-2.9); HEMATOCRIT 35.9 % (36.0-47.0); HEMOGLOBIN 12.4 g/dL (12.0-16.0); LYMPHOCYTES % (AUTO) 28.2 % (21.0-51.0); MEAN CORPUSCULAR HGB CONC 34.5 g/dL (33.0-35.0); MEAN CORPUSCULAR VOLUME 86.9 fL (80.0-100.0); MEAN PLATELET VOLUME 7.7 fL (7.4-11.0); MONOCYTES # (AUTO) 0.9 x10^3/uL (0.3-0.8); MONOCYTES % (AUTO) 8.2 % (0.0-13.0); NEUTROPHILS # (AUTO) 6.4 x10^3/uL (2.2-4.8); NEUTROPHILS % (AUTO) 60.6 % (42.0-75.0); RED BLOOD COUNT 4.13 X10^6/uL (3.5-5.4); RED CELL DISTRIBUTION WIDTH 12.8 % (11.6-16.5); WHITE BLOOD COUNT 10.6 X10^3/uL (3.6-10.0)
--- NOTE | 2021-10-06 20:36 | DR.RPFEMAL ---
HPI Time Seen Time Seen by Provider: 10/06/21 19:53 PCP Primary Care Physician: JARVIS PATTERSON/ KOFI Complaint Chief Complaint:: HEMORRHOIDECTOMY 09/21/21 PASSING LARGE BLOOD CLOTS AND EXCESSIVE BLEEDING Chief Complaint Doctors Comments: PATIENT IS 65YR OLD FEMALE IN ER WITH HISTORY OF HEMOOOIODECTOMY RECENTLY, 09/21/21 AND HAVING RECTAL PAIN AND BLEEDING. SHE WAS ADMITTED AND DISCHARGE FROM HOSPITAL 4 DAYS FOR SIMILAR COMPLAINT. NO FEVER, DIZZINESS OR SYNCOPAL FEELING. PASSING BLOOD CLOTS. NO DYSURIA. COVID-19 Coronavirus risk:travel/contact w/high risk person: No Has patient experienced Coronavirus symptoms: No Reviewed Nurses Notes Review: Yes Source History Provided: Patient and Significant Other Mode of Arrival Mode of Arrival: Ambulatory Timing Onset of Chief Complaint: 10/06/21 Context Onset: Other (POST HEMORRHIODECTOMY.) Quality Quality: Sharp Severity Pain Severity: Moderate Modifying factors Symptoms worsen with:: Bowel movement Associated signs and symptoms Associated signs and symptoms: Rectal Bleeding PMH PMH Past Medical History: Yes Past Medical History: Diabetes and Hypertension Past Surgical History: Yes Surgical History: Hysterectomy, Ortho Surgery and Other Past Surgical History Comment: HEMORRHOIDECTOMY, NECK SURGERY, SHOULDER SURGERY, BACK SURGERY, WRIST SURGERY Family History History of Family Medical Conditions: Yes Family Medical History: Diabetes Mellitus, Cancer, Coronary Artery Disease and Hypertension Social History Does patient currently use any type of tobacco product: No Have you used tobacco products in the last 12 months: No Type of Tobacco Use: None Alcohol Use: None Do you use any recreational Drugs:: No Lives With: Spouse Lives Where: Home Travel Risk Coronavirus risk:travel/contact w/high risk person: No Has patient experienced Coronavirus symptoms: No Infectious screening In the last 2 months have you had wt loss of >10#?: NO Have you had fever, night sweats or hemotysis?: No Have you traveled outside the country in the last 6 months?: No Isolation: Standard ROS Review of Systems Constitutional: See HPI and Weakness Eyes: No Symptoms Reported and See HPI; negative Blurred Vision ENTM: negative Nose Discharge or Nose Congestion Respiratoy: No Symptoms Reported and See HPI; negative Moist Cough, Short of Breath or Wheezing Cardiovascular: No Symptoms Reported and See HPI; negative Chest Pain Gastrointestinal/Abdominal: Abdominal Pain; negative Constipation, Diarrhea or Vomiting Genitourinary: No Symptoms Reported and See HPI; negative Dysuria, Frequency or Hematuria Neurological: See HPI and Weakness; negative Headache or Dizziness Musculoskeletal: No Symptoms Reported, See HPI and Back Pain Integumentary: No Symptoms Reported and See HPI Hematologic/Lymphatic: No Symptoms Reported and See HPI; negative Easy Bruising Endocrine: No Symptoms Reported and See HPI; negative Increased Thirst or Increased Urine Psychiatric: No Symptoms Reported All Other Systems: Reviewed and Negative PE (FEMALE) Vital Signs Vitals: Temperature 98 F Pulse Rate 105 Respiratory Rate 18 Blood Pressure [Left Arm] 159/76 Blood Pressure 105/57 O2 Sat by Pulse Oximetry 98 General Limitations: No Limitations Head Head Exam: Normal Inspection and Atraumatic Eyes Eye exam: Normal Appearance and PERRL; negative Scleral Icterus or Conjunctival Injection ENT ENT Exam: Normal Exam, Normal Oropharynx, Normal External Ear Exam and TM's Normal Bilaterally Neck Neck Exam: Normal Inspection and Trachea Midline; negative Tenderness Chest Chest Inspection: Normal Inspection and Symmetric Chest Wall Rise; negative Tenderness Respiratory Respiratory Exam: Normal Lung Sounds Bilat; negative Accessory Muscle Use, Chest Wall Tenderness or Respiratory Distress Respiratory Exam: Bilateral: Clear to Auscultation Abdominal Exam Abdominal Exam: Normal Inspection, Normal Bowel Sounds and Soft; negative Tenderness Abdominal Tenderness: Other (RECTAL TENDERNESS. POSTERIOR RECTAL WALL WOUND WITHOUT ACTIVE BLEEDING AND HEALING. PEANUT SHAPE EATERNAL SWELLING NOTED. NOT THROMBOSED. PATIENT SAID IS PAINFULL TO DO DIGITAL EXAM) Genitourinary External Exam: Female: Deferred : Speculum Exam (Female): Deferred : Bimanual Exam (female): Deferred Extremities Extremities Exam: Normal Inspection and Normal Capillary Refill Back Back Exam: Normal Inspection; negative (R) CVA Tenderness or (L) CVA Tenderness Neurologic Neurological Exam: Alert and Oriented X3; negative Motor Sensory Deficit Psychiatric Psychiatric Exam: Normal Affect and Normal Mood MDM Differential diagnosis Differntial Diagnosis: Constipation, Thrombosed hemorrhoid, UTI and Other (RECTAL BLEEDING, RECTAL PAIN.) COURSE Consultation Consultation Comments: DISCUSSED PATIENT WITH DR. LEE. HE WILL ADMIT PATIENT. DISCUSSED WITH DR. HOPKINS. HE IS OUT OF TOWN TILL FRIDAY. TO CONSULT DR. AGUILAR NEEDED. ROR Labs Reviewed Laboratory Results Reviewed?: Yes Result Diagrams: 10/08/21 03:45 10/08/21 03:45 Laboratory: WBC 10.6 X10^3/uL (3.6-10.0) H 10/06/21 20:17 RBC 4.13 X10^6/uL (3.5-5.4) 10/06/21 20:17 Hgb 12.4 g/dL (12.0-16.0) 10/06/21 20:17 Hct 35.9 % (36.0-47.0) L 10/06/21 20:17 MCV 86.9 fL (80.0-100.0) 10/06/21 20:17 MCH 30.0 pg (27.0-34.0) 10/06/21 20:17 MCHC 34.5 g/dL (33.0-35.0) 10/06/21 20:17 RDW 12.8 % (11.6-16.5) 10/06/21 20:17 Plt Count 334 X10^3/uL (150.0-450.0) 10/06/21 20:17 MPV 7.7 fL (7.4-11.0) 10/06/21 20:17 Neut % (Auto) 60.6 % (42.0-75.0) 10/06/21 20:17 Lymph % (Auto) 28.2 % (21.0-51.0) 10/06/21 20:17 Mineral % (Auto) 8.2 % (0.0-13.0) 10/06/21 20:17 Eos % (Auto) 2.3 % (0.9-2.9) 10/06/21 20:17 Baso % (Auto) 0.7 % (0.2-1.0) 10/06/21 20:17 Neut # (Auto) 6.4 x10^3/uL (2.2-4.8) H 10/06/21 20:17 Lymph # (Auto) 3.0 X10^3/uL (1.3-2.9) H 10/06/21 20:17 Mineral # (Auto) 0.9 x10^3/uL (0.3-0.8) H 10/06/21 20:17 Eos # (Auto) 0.2 x10^3/uL (0.0-0.2) 10/06/21 20:17 Baso # (Auto) 0.1 X10^3/uL (0.0-0.1) 10/06/21 20:17 Absolute Nucleated RBC 0.0 /100WBC 10/06/21 20:17 PT 13.8 SECONDS (11.8-14.3) 10/06/21 20:17 INR Target Range - 10/06/21 20:17 INR 1.09 (0.8-1.3) 10/06/21 20:17 APTT 24.3 SECONDS (22.9-36.5) 10/06/21 20:17 PTT Comment - 10/06/21 20:17 Sodium 139 mmol/L (136-145) 10/06/21 20:17 Corrected Sodium 143 mmol/L (136-145) 10/06/21 20:17 Potassium 4.4 mmol/L (3.5-5.1) 10/06/21 20:17 Chloride 104 mmol/L (98-107) 10/06/21 20:17 Carbon Dioxide 26.7 mmol/L (21-32) 10/06/21 20:17 BUN 26 mg/dL (7-18) H 10/06/21 20:17 Creatinine 1.39 mg/dL (0.55-1.02) H 10/06/21 20:17 Est GFR (MDRD) Af Amer 49 (>60) L 10/06/21 20:17 Est GFR (MDRD) Non-Af 41 (>60) L 10/06/21 20:17 Glucose 264 mg/dL (65-99) H 10/06/21 20:17 Calcium 8.6 mg/dL (8.5-10.1) 10/06/21 20:17 Corrected Calcium 9.2 mg/dL (8.5-10.1) 10/06/21 20:17 Total Bilirubin 0.30 mg/dL (0.2-1.0) 10/06/21 20:17 AST 21 Units/L (15-37) 10/06/21 20:17 ALT 28 Units/L (12-78) 10/06/21 20:17 Alkaline Phosphatase 86 Units/L (46-116) 10/06/21 20:17 Total Protein 6.5 g/dL (6.4-8.2) 10/06/21 20:17 Albumin 3.2 g/dL (3.4-5.0) L 10/06/21 20:17 Globulin 3.3 g/dL (2.5-4.5) 10/06/21 20:17 Albumin/Globulin Ratio 1.0 Ratio (1.1-2.1) L 10/06/21 20:17 Opioid Opioid Risk Tool Age (Sukhjinder box if 16-45): No Total: 0 Total Score Risk Category: Low Risk Copyright: Marc RAIN predicting aberrant behaviors Diagnosis Discharge Problem: Pain, rectal, Rectal bleeding, S/P hemorrhoidectomy
[2021-10-06 20:48] LABS: ALBUMIN 3.2 g/dL (3.4-5.0); CALCIUM 8.6 mg/dL (8.5-10.1); CARBON DIOXIDE 26.7 mmol/L (21-32); COR CA(FOR HYPOALB) 9.2 mg/dL (8.5-10.1); CREATININE 1.39 mg/dL (0.55-1.02); TOTAL PROTEIN 6.5 g/dL (6.4-8.2)
[2021-10-06] MEDS ORDERED: AMOXIL CAP 500 MG PO ONE (22:32)
[2021-10-06] MEDS ORDERED: ZyrTEC TAB 10 MG PO ONE (22:33)
[2021-10-06] MEDS ORDERED: TORADOL TAB PO ONE (22:33)
[2021-10-07] MEDS ORDERED: PERCOCET TAB 5/325 MG ONE (00:08)
[2021-10-07] MEDS: PERCOCET TAB 5/325 MG PO PRN ×2 (00:13→10:48)
[2021-10-07] MEDS ORDERED: NS 1,000 ML IV 1,000 ML ONE (00:44)
[2021-10-07] MEDS: NS 1,000 ML IV 1,000 ML IV SCH ×4 (00:52→19:30)
[2021-10-07] MEDS ORDERED: PEPCID TAB 20 MG PO PRN (01:48)
[2021-10-07] MEDS ORDERED: MORPHINE SULFATE INJ 2 MG INJ IVP PRN (01:48)
[2021-10-07] MEDS ORDERED: ZOFRAN INJ 4 MG VIAL IVP PRN (01:48)
[2021-10-07 02:39] VITALS: BMI 31.1
[2021-10-07 05:10] LABS: BASOPHILS # (AUTO) 0.1 X10^3/uL (0.0-0.1); BASOPHILS % (AUTO) 0.8 % (0.2-1.0); EOSINOPHILS # (AUTO) 0.3 x10^3/uL (0.0-0.2); EOSINOPHILS % (AUTO) 3.1 % (0.9-2.9); HEMATOCRIT 34.1 % (36.0-47.0); HEMOGLOBIN 11.7 g/dL (12.0-16.0); LYMPHOCYTES # (AUTO) 3.1 X10^3/uL (1.3-2.9); LYMPHOCYTES % (AUTO) 35.3 % (21.0-51.0); MEAN CORPUSCULAR HEMOGLOBIN 29.9 pg (27.0-34.0); MEAN CORPUSCULAR HGB CONC 34.3 g/dL (33.0-35.0); MEAN CORPUSCULAR VOLUME 87.2 fL (80.0-100.0); MEAN PLATELET VOLUME 7.9 fL (7.4-11.0); MONOCYTES # (AUTO) 0.7 x10^3/uL (0.3-0.8); MONOCYTES % (AUTO) 8.5 % (0.0-13.0); NEUTROPHILS # (AUTO) 4.6 x10^3/uL (2.2-4.8); NEUTROPHILS % (AUTO) 52.3 % (42.0-75.0); RED CELL DISTRIBUTION WIDTH 12.9 % (11.6-16.5); WHITE BLOOD COUNT 8.8 X10^3/uL (3.6-10.0)
[2021-10-07 05:42] LABS: ALANINE AMINOTRANSFERASE 27 Units/L (12-78); ALBUMIN 2.9 g/dL (3.4-5.0); ALKALINE PHOSPHATASE 74 Units/L (46-116); ASPARTATE AMINO TRANSFERASE 17 Units/L (15-37); BLOOD UREA NITROGEN 23 mg/dL (7-18); CALCIUM 8.3 mg/dL (8.5-10.1); CARBON DIOXIDE 28.6 mmol/L (21-32); CHLORIDE 104 mmol/L (98-107); COR CA(FOR HYPOALB) 9.2 mg/dL (8.5-10.1); COR NA(FOR HYPERGLY) 141 mmol/L (136-145); SODIUM 139 mmol/L (136-145); eGFR NON BLACK RACES 53 (>60)
[2021-10-07] MEDS ORDERED: DUONEB 0.5 MG/3 MG (3 mL) NEB SCH (06:00)
[2021-10-07] MEDS: NovoLIN R (or HumuLIN R) SC PRN ×2 (06:29→13:00)
[2021-10-07] MEDS ORDERED: POTASSIUM CHL 40 MEQ/NS 0.45% 500 ML IV PRN (07:58)
[2021-10-07] MEDS ORDERED: K-RIDER 10 MEQ/NS 100 ML 10 MEQ/100 ML BAG IV PRN (07:58)
[2021-10-07] MEDS ORDERED: POTASSIUM CHL 60 MEQ/NS 0.45% 500 ML IV PRN (07:58)
[2021-10-07] MEDS ORDERED: POTASSIUM CHLORIDE LIQ 20 MEQ UDC PO PRN (07:58)
[2021-10-07] MEDS ORDERED: K-DUR TAB 20 MEQ PO PRN (07:58)
[2021-10-07] MEDS ORDERED: KLOR-CON PO PRN (07:58)
[2021-10-07] MEDS ORDERED: MICRO K EXTEN CAP 10 MEQ PO PRN (07:58)
[2021-10-07 08:38] LABS: BILIRUBIN,URINE NEGATIVE (NEGATIVE); BLOOD/HEMOGLOBIN,URINE NEGATIVE (NEGATIVE); GLUCOSE, URINE NEGATIVE (NEGATIVE); KETONES,URINE NEGATIVE (NEGATIVE); LEUKOCYTE ESTERASE ,URINE NEGATIVE (NEGATIVE); NITRITES,URINE NEGATIVE (NEGATIVE); PH,URINE 6.5 (5.0 - 8.0); PROTEIN,URINE NEGATIVE (NEGATIVE); UROBILINOGEN,URINE NORMAL (NORMAL)
[2021-10-07 08:43] LABS: APPEARANCE,URINE CLEAR (CLEAR); COLOR,URINE YELLOW (YELLOW)
[2021-10-07] MEDS ORDERED: DUONEB 0.5 MG/3 MG (3 mL) NEB PRN (08:49)
[2021-10-07] MEDS ORDERED: ROCEPHIN 1 GRAM IV PREMIX 1 G/50 ML IV.SOLN. IV SCH (09:00)
[2021-10-07] MEDS ORDERED: LASIX IVP SCH (09:00)
[2021-10-07] MEDS ORDERED: PATIENT'S HOME MEDICATION (Dexlansoprazole 60 mg capsule,biphase delayed releas) PO SCH (09:00)
[2021-10-07] MEDS ORDERED: NS 100 ML IV 100 ML ONE (10:07)
[2021-10-07] MEDS: WELLBUTRIN XL 300 MG (DAILY) PO SCH (10:24)
[2021-10-07] MEDS: VALTREX PO SCH (10:26)
[2021-10-07] MEDS: HYDROCHLOROTHIAZIDE 25 MG TAB PO SCH (10:26)
[2021-10-07] MEDS: ZESTRIL TAB 10 MG PO SCH (10:26)
[2021-10-07] MEDS: AMARYL TAB 4 MG PO SCH ×2 (10:27→21:37)
[2021-10-07] MEDS: LOPRESSOR TAB 25 MG PO SCH ×2 (10:28→21:37)
[2021-10-07] MEDS: ROCEPHIN VIAL 1 GRAM 1 G in NS 100 ML IV 100 ML IV SCH (10:28)
[2021-10-07] MEDS: PROTONIX TAB 40 MG PO SCH (10:33)
[2021-10-07] MEDS: MAGNESIUM SULFATE 1 GRAM/100 mL PREMIX 1 G/100 ML BAG IV PRN ×2 (12:15→15:00)
[2021-10-07] MEDS ORDERED: PREPARATION H OINT RECTAL PRN (15:52)
[2021-10-07] MEDS ORDERED: XYLOCAINE VISCOUS MT PRN ×2 (15:52→15:59)
--- NOTE | 2021-10-07 15:56 | DR.CONSULT ---
CONSULT Consultation for Day of: Date: 10/07/21 Chief Complaint Chief Complaint: Rectal bleeding s/p traditional hemorrhoidectomy on 09/21/2021 Allergies Allergies Allergy/AdvReac Type Severity Reaction Status Date / Time aspirin Allergy Intermediate stomach Verified 09/21/21 07:05 problems History of Present Illness History of Present Illness: 65 year old female who underwent traditional open hemorrhoidectomy and lateral internal sphincterotomy on September 21, 2021 .She presented one week later with pain and some bleeding and was observed as an inpatient and discharged home. She did not have an exam under anesthesia at that time. She returns now with bright red blood per rectum. She still has pain with bowel movements. Hemoglobin is stable at 11.7. Past Medical History Past Medical History: Diabetes and Hypertension Past Surgical History Surgical History: Hysterectomy, Ortho Surgery and Other Family History Family Medical History: Diabetes Mellitus, Cancer, Coronary Artery Disease and Hypertension Social History Does patient currently use any type of tobacco product: No Have you used tobacco products in the last 12 months: No Type of Tobacco Use: None Alcohol Use: None Drug Use: None Medications Home Medications: aspirin Allergy (Intermediate, Verified 09/21/21 07:05) stomach problems Review of Systems Constitutional: See HPI Eyes: No Symptoms Reported ENT: No Symptoms Reported Respiratory: No Symptoms Reported Cardiovascular: No Symptoms Reported Gastrointestinal: Hematochezia Genitourinary: No Symptoms Reported Musculoskeletal: No Symptoms Reported Skin: No Symptoms Reported Neurological: No Symptoms Reported and Other Physical Exam Vital Signs: Temperature 98 F Pulse Rate [Right Brachial] 80 Pulse Rate 105 Respiratory Rate 18 Blood Pressure [Right Arm] 138/70 Blood Pressure [Left Arm] 105/57 Blood Pressure 105/57 O2 Sat by Pulse Oximetry 96 Oriented: Normal, Time, Person and Place Eyes: Normal Ear: Normal Nose: Normal Throat: Normal Respiratory: Clear Throughout Cardiovascular: Normal : Normal Auscultation: Bowel Sounds: Normal Palpation: Normal Tenderness: Normal Skin: Normal Musculoskeletal: Normal Psychiatric: Normal Mood Description: Calm Affect: Normal Speech Pattern: Clear Plan (1) Hematochezia: Status: Acute Plan: Will observe hemoglobin and give clear liquid diet and plan rectal exam under anesthesia. May require circular stapled hemorrhoidopexy.
[2021-10-07 17:45] LABS: HEMATOCRIT 35.8 % (36.0-47.0); HEMOGLOBIN 12.4 g/dL (12.0-16.0)
[2021-10-07] MEDS: SNACK - Diabetic Appropriate PO SCH (21:07)
--- NOTE | 2021-10-07 21:17 | DR.UPDATE ---
H&P Update History and Physical Update: History and Physical reviewed and patient examined. Changes noted: Yes with the following: is a 65-year-old female who presented to the ER with complaints of rectal bleeding and passing large clots. She had a colonoscopy on 09/21/[address] Collins and underwent hemorrhoidectomy and partial internal lateral sphincterotomy without any complications. Since procedure, patient has continued having pretty severe pain and persistent rectal bleeding. On arrival to the ER, vitals were: 98.0-100-20-98%-105/57. Labs were obtained. WBC 10.6, RBC 4.13, HGB 12.4, HCT 35.9, SODIUM 139, POTASSIUM 4.4, CHLORIDE 104, BUN 26, CREATININE 1.39, GLUCOSE 264, CALCIUM 8.6, AST 21, ALT 28, ALK PHOS 86, TOTAL PROTEIN 6.5, ALBUMIN 3.2, PT 13.8, INR 1.09, PTT 24.3. SHE WAS ADMITTED TO THE HOSPITAL FOR FURTHER EVALUATION AND TREATMENT. SHE WAS STARTED ON ROCEPHIN 1G IV DAILY, NORMAL SALINE AT 125 ML/HR, HUMULIN R SLIDING SCALE, OTBS ACHS, MORPHINE 3MG IV Q4H PRN, ZOFRAN 4MG IV Q6H PRN, PERCOCET 5/325MG PO Q4H PRN PAIN, PREPARATION H HI TID, THE POTASSIUM AND MAGNESIUM PROTOCOLS, AND HER HOME MEDICATIONS WERE RESUMED. WE WILL CONSULT , GENERAL SURGEON, FOR FURTHER EVALUATION. OTHERWISE, WE PLAN TO FOLLOW-UP WITH AM LABS AND CONTINUE TO MONITOR. TIME SPENT ON CLINICAL ASSESSMENT, REVIEWING LABS AND IMAGING, DECISION MAKING, AND DOCUMENTATION GREATER THAN 75 MINUTES. H&P Reviewed: Yes Patient was examined?: Yes
[2021-10-07] MEDS: BETADINE SOLN TOP SCH (21:37)
[2021-10-08] MEDS: NS 1,000 ML IV 1,000 ML IV SCH ×3 (02:25→20:46)
[2021-10-08 05:03] LABS: BASOPHILS % (AUTO) 0.6 % (0.2-1.0); EOSINOPHILS # (AUTO) 0.2 x10^3/uL (0.0-0.2); HEMATOCRIT 34.5 % (36.0-47.0); HEMOGLOBIN 11.9 g/dL (12.0-16.0); LYMPHOCYTES # (AUTO) 3.1 X10^3/uL (1.3-2.9); LYMPHOCYTES % (AUTO) 37.5 % (21.0-51.0); MEAN CORPUSCULAR HEMOGLOBIN 29.9 pg (27.0-34.0); MEAN CORPUSCULAR HGB CONC 34.4 g/dL (33.0-35.0); MEAN CORPUSCULAR VOLUME 86.8 fL (80.0-100.0); MEAN PLATELET VOLUME 7.9 fL (7.4-11.0); MONOCYTES # (AUTO) 0.8 x10^3/uL (0.3-0.8); MONOCYTES % (AUTO) 9.3 % (0.0-13.0); NEUTROPHILS # (AUTO) 4.2 x10^3/uL (2.2-4.8); NEUTROPHILS % (AUTO) 49.6 % (42.0-75.0); RED BLOOD COUNT 3.97 X10^6/uL (3.5-5.4); RED CELL DISTRIBUTION WIDTH 12.7 % (11.6-16.5); WHITE BLOOD COUNT 8.4 X10^3/uL (3.6-10.0)
[2021-10-08 05:06] LABS: ALANINE AMINOTRANSFERASE 24 Units/L (12-78); ALBUMIN 3.1 g/dL (3.4-5.0); ALKALINE PHOSPHATASE 74 Units/L (46-116); ASPARTATE AMINO TRANSFERASE 15 Units/L (15-37); BLOOD UREA NITROGEN 14 mg/dL (7-18); CALCIUM 8.7 mg/dL (8.5-10.1); CHLORIDE 105 mmol/L (98-107); COR CA(FOR HYPOALB) 9.4 mg/dL (8.5-10.1); COR NA(FOR HYPERGLY) 143 mmol/L (136-145); CREATININE 0.89 mg/dL (0.55-1.02); MAGNESIUM 1.9 mg/dL (1.7-2.9); SODIUM 142 mmol/L (136-145); TOTAL PROTEIN 6.2 g/dL (6.4-8.2); eGFR NON BLACK RACES > 60 (>60)
[2021-10-08] MEDS: HYDROCHLOROTHIAZIDE 25 MG TAB PO SCH (09:00)
[2021-10-08] MEDS: PROTONIX TAB 40 MG PO SCH (09:00)
[2021-10-08] MEDS: VALTREX PO SCH (09:00)
[2021-10-08] MEDS: WELLBUTRIN XL 300 MG (DAILY) PO SCH (09:00)
[2021-10-08] MEDS: LOPRESSOR TAB 25 MG PO SCH ×2 (09:00→21:32)
[2021-10-08] MEDS: AMARYL TAB 4 MG PO SCH ×2 (09:00→21:32)
[2021-10-08] MEDS: ZESTRIL TAB 10 MG PO SCH (09:00)
[2021-10-08] MEDS: ROCEPHIN VIAL 1 GRAM 1 G in NS 100 ML IV 100 ML IV SCH (09:11)
[2021-10-08] MEDS: BETADINE SOLN TOP SCH ×2 (09:11→21:28)
[2021-10-08] MEDS: TUCKS MEDICATED PAD TOP SCH ×4 (11:40→21:31)
[2021-10-08] MEDS: NovoLIN R (or HumuLIN R) SC PRN ×3 (11:40→22:00)
[2021-10-08] MEDS: XYLOCAINE VISCOUS MT SCH ×3 (11:41→21:30)
[2021-10-08] MEDS: PREPARATION H OINT RECTAL SCH ×4 (11:41→21:30)
--- NOTE | 2021-10-08 13:24 | NOTE.SOAP ---
Soap Note Note for Day of Date of Exam: 10/08/21 Subjective Data Subjective Data: Patient still having bleeding per rectum. Has decided not to proceed with exam under anesthesia. She would like to wait for Dr Wolff will not return until 10/11. Tolerating diet Objective Data Temperature: 98.1 F Pulse Rate: 79 Respiratory Rate: 20 Blood Pressure: 178/83 O2 Sat by Pulse Oximetry: 96 Objective Data: Hgb=11.9 Benign abdomen, reported still with blood per rectum and pain with defecation. Assessment Assessment: 2nd admission for blood per rectum since hemorrhoidectomy on 09/21/2021. I respect but disagree with her delay as this has now happened twice since surgery and this will delay her care and potential discharge. I will sign off at this time but be available if the patient changes her mind. Plan Plan: as above
[2021-10-08] MEDS: SNACK - Diabetic Appropriate PO SCH (21:29)
[2021-10-08] MEDS: PERCOCET TAB 5/325 MG PO PRN (22:07)
[2021-10-09] MEDS: NS 1,000 ML IV 1,000 ML IV SCH ×5 (01:50→22:26)
[2021-10-09 04:43] LABS: BASOPHILS # (AUTO) 0.1 X10^3/uL (0.0-0.1); BASOPHILS % (AUTO) 0.7 % (0.2-1.0); EOSINOPHILS # (AUTO) 0.3 x10^3/uL (0.0-0.2); EOSINOPHILS % (AUTO) 3.5 % (0.9-2.9); HEMATOCRIT 30.6 % (36.0-47.0); HEMOGLOBIN 10.6 g/dL (12.0-16.0); LYMPHOCYTES # (AUTO) 3.7 X10^3/uL (1.3-2.9); LYMPHOCYTES % (AUTO) 44.1 % (21.0-51.0); MEAN CORPUSCULAR HEMOGLOBIN 30.4 pg (27.0-34.0); MEAN CORPUSCULAR HGB CONC 34.8 g/dL (33.0-35.0); MEAN CORPUSCULAR VOLUME 87.2 fL (80.0-100.0); MEAN PLATELET VOLUME 7.8 fL (7.4-11.0); MONOCYTES # (AUTO) 0.8 x10^3/uL (0.3-0.8); MONOCYTES % (AUTO) 9.9 % (0.0-13.0); NEUTROPHILS # (AUTO) 3.5 x10^3/uL (2.2-4.8); NEUTROPHILS % (AUTO) 41.8 % (42.0-75.0); RED CELL DISTRIBUTION WIDTH 12.7 % (11.6-16.5); WHITE BLOOD COUNT 8.4 X10^3/uL (3.6-10.0)
[2021-10-09 04:56] LABS: ALANINE AMINOTRANSFERASE 27 Units/L (12-78); ALBUMIN 2.9 g/dL (3.4-5.0); ALKALINE PHOSPHATASE 73 Units/L (46-116); ASPARTATE AMINO TRANSFERASE 17 Units/L (15-37); BLOOD UREA NITROGEN 17 mg/dL (7-18); CALCIUM 8.5 mg/dL (8.5-10.1); CARBON DIOXIDE 28.3 mmol/L (21-32); CHLORIDE 107 mmol/L (98-107); COR CA(FOR HYPOALB) 9.4 mg/dL (8.5-10.1); COR NA(FOR HYPERGLY) 143 mmol/L (136-145); CREATININE 0.87 mg/dL (0.55-1.02); SODIUM 142 mmol/L (136-145); TOTAL PROTEIN 5.9 g/dL (6.4-8.2); eGFR NON BLACK RACES > 60 (>60)
[2021-10-09] MEDS: LOPRESSOR TAB 25 MG PO SCH ×2 (09:30→21:10)
[2021-10-09] MEDS: WELLBUTRIN XL 300 MG (DAILY) PO SCH (09:30)
[2021-10-09] MEDS: BETADINE SOLN TOP SCH ×2 (09:30→21:11)
[2021-10-09] MEDS: XYLOCAINE VISCOUS MT SCH ×4 (09:30→21:11)
[2021-10-09] MEDS: PREPARATION H OINT RECTAL SCH ×4 (09:30→21:11)
[2021-10-09] MEDS: PROTONIX TAB 40 MG PO SCH (09:30)
[2021-10-09] MEDS: TUCKS MEDICATED PAD TOP SCH ×4 (09:30→21:11)
[2021-10-09] MEDS: ROCEPHIN VIAL 1 GRAM 1 G in NS 100 ML IV 100 ML IV SCH (09:30)
[2021-10-09] MEDS: VALTREX PO SCH (09:30)
[2021-10-09] MEDS: HYDROCHLOROTHIAZIDE 25 MG TAB PO SCH (09:35)
[2021-10-09] MEDS: AMARYL TAB 4 MG PO SCH ×2 (09:35→21:12)
[2021-10-09] MEDS: ZESTRIL TAB 10 MG PO SCH (10:00)
[2021-10-09] MEDS: PREPARATION H RECTAL SCH ×3 (12:00→21:11)
[2021-10-09] MEDS: NovoLIN R (or HumuLIN R) SC PRN ×2 (13:00→18:34)
--- NOTE | 2021-10-09 18:37 | PCM.PROG ---
Progress Note - Progress Note for Day of Date of Exam: 10/08/21 - Subjective Subjective: IS STATUS POST TRADITIONAL HYSTERECTOMY AND LACTERAL INTERNAL SPHINCTEROTOMY ON 09/21/21 WITHOUT COMPLICATIONS. SHE HAS RETURNED TWICE SINCE PROCEDURE WITH COMPLAINTS OF PERSISTENT BLEEDING AND PAIN. SHE WAS ADMITTED FOR FURTHER EVALUATION. TODAY, SHE IS ALERT AND ORIENTED, LYING IN BED ON MORNING ROUNDS. SHE CONTINUES WITH COMPLAINTS OF RECTAL PAIN AND BLEEDING WHEN SHE USES THE BATHROOM. BLOOD IS APPARENTLY BRIGHT RED. ON EXAMINATION, HEART IS REGULAR IN RATE AND RHYTHM. BILATERAL LUNGS ARE CLEAR TO AUSCULTATION. ABDOMEN IS ROUND, SOFT, AND NON-TENDER WITH NORMAL BOWEL SOUNDS NOTED IN ALL QUADRANTS. NO UPPER OR LOWER EXTREMITY EDEMA NOTED. HER VITALS THIS MORNING ARE: 98.1-79-20-96%-178/83. LABS WERE OBTAINED. WBC 8.4, RBC 3.97, HGB 11.9, HCT 34.5, PLT COUNT 321, SODIUM 142, POTASSIUM 3.9, BUN 17, CREATININE 0.89, GLUCOSE 148, AST 15, ALT 24, ALK PHOS 74, TOTAL PROTEIN 6.2, ALBUMIN 3.1. SHE IS CURRENTLY RECEIVING ROCEPHIN 1G IV DAILY, NORMAL SALINE AT 125 ML/HR, HUMULIN R SLIDING SCALE, OTBS ACHS, MORPHINE 3MG IV Q4H PRN, ZOFRAN 4MG IV Q6H PRN, PERCOCET 5/325MG PO Q4H PRN PAIN, THE POTASSIUM AND MAGNESIUM PROTOCOLS, AND HER HOME MEDICATIONS WERE RESUMED. SHE IS ALSO USING A COMBINATION OF TUCKS PADS WITH PREPARATION H AND VISCOUS LIDOCAINE TO AREA FOUR TIMES A DAY. CONSULTED WITH PATIENT, HOWEVER, PATIENT REFUSED EXAM UNDER ANESTHESIA AT THIS TIME. WE WILL CONTINUE WITH HER CURRENT PLAN OF CARE TODAY. OTHERWISE, WE PLAN TO FOLLOW UP WITH AM LABS TO MONITOR HEMOGLOBIN. TIME SPENT ON CLINICAL ASSESSMENT, REVIEWING LABS AND IMAGING, DECISION MAKING, AND DOCUMENTATION GREATER THAN 45 MINUTES. - Past Medical Family Social History Past Med/Fam/Surg Hx: No changes since H&P Allergies: Allergies aspirin Allergy (Intermediate, Verified 09/21/21 07:05) stomach problems "Stomach feels like it is on fire" - Review of Systems ROS: No change since H&P - Vital Signs and I&O's Vital Signs: Temperature 99.2 F Pulse Rate [Right Brachial] 84 Pulse Rate 79 Respiratory Rate 20 Blood Pressure [Right Arm] 127/74 Blood Pressure [Left Arm] 105/57 Blood Pressure 178/83 O2 Sat by Pulse Oximetry 94 Intake and Output: Intake & Output 10/07/21 10/08/21 10/09/21 10/10/21 11:59 11:59 11:59 11:59 Intake Total 625 / 625 3530 / 3530 3130 / 3130 680 / 680 Balance 625 / 625 3530 / 3530 3130 / 3130 680 / 680 - Physical Exam Oriented: Normal, Time, Person, Place Eyes: Normal Ear: Normal Nose: Normal Throat: Normal Respiratory: Normal Cardiovascular: Normal : Normal Auscultation: Bowel Sounds: Normal Palpation: Normal Tenderness: Normal Skin: Normal Musculoskeletal: Normal Psychiatric: Normal Mood Description: Calm Affect: Normal Speech Pattern: Clear, Appropriate - Laboratory and Diagnostics Result Diagrams: 10/09/21 04:03 10/09/21 04:03 Labs: Laboratory WBC 8.4 X10^3/uL (3.6-10.0) 10/09/21 04:03 RBC 3.50 X10^6/uL (3.5-5.4) 10/09/21 04:03 Hgb 10.6 g/dL (12.0-16.0) L 10/09/21 04:03 Hct 30.6 % (36.0-47.0) L 10/09/21 04:03 MCV 87.2 fL (80.0-100.0) 10/09/21 04:03 MCH 30.4 pg (27.0-34.0) 10/09/21 04:03 MCHC 34.8 g/dL (33.0-35.0) 10/09/21 04:03 RDW 12.7 % (11.6-16.5) 10/09/21 04:03 Plt Count 313 X10^3/uL (150.0-450.0) 10/09/21 04:03 MPV 7.8 fL (7.4-11.0) 10/09/21 04:03 Neut % (Auto) 41.8 % (42.0-75.0) L 10/09/21 04:03 Lymph % (Auto) 44.1 % (21.0-51.0) 10/09/21 04:03 [place] % (Auto) 9.9 % (0.0-13.0) 10/09/21 04:03 Eos % (Auto) 3.5 % (0.9-2.9) H 10/09/21 04:03 Baso % (Auto) 0.7 % (0.2-1.0) 10/09/21 04:03 Neut # (Auto) 3.5 x10^3/uL (2.2-4.8) 10/09/21 04:03 Lymph # (Auto) 3.7 X10^3/uL (1.3-2.9) H 10/09/21 04:03 [place] # (Auto) 0.8 x10^3/uL (0.3-0.8) 10/09/21 04:03 Eos # (Auto) 0.3 x10^3/uL (0.0-0.2) H 10/09/21 04:03 Baso # (Auto) 0.1 X10^3/uL (0.0-0.1) 10/09/21 04:03 Absolute Nucleated RBC 0.0 /100WBC 10/09/21 04:03 PT 13.8 SECONDS (11.8-14.3) 10/06/21 20:17 INR Target Range - 10/06/21 20:17 INR 1.09 (0.8-1.3) 10/06/21 20:17 APTT 24.3 SECONDS (22.9-36.5) 10/06/21 20:17 PTT Comment - 10/06/21 20:17 Sodium 142 mmol/L (136-145) 10/09/21 04:03 Corrected Sodium 143 mmol/L (136-145) 10/09/21 04:03 Potassium 4.0 mmol/L (3.5-5.1) 10/09/21 04:03 Chloride 107 mmol/L (98-107) 10/09/21 04:03 Carbon Dioxide 28.3 mmol/L (21-32) 10/09/21 04:03 BUN 17 mg/dL (7-18) 10/09/21 04:03 Creatinine 0.87 mg/dL (0.55-1.02) 10/09/21 04:03 Est GFR (MDRD) Af Amer > 60 (>60) 10/09/21 04:03 Est GFR (MDRD) Non-Af > 60 (>60) 10/09/21 04:03 Glucose 137 mg/dL (65-99) H 10/09/21 04:03 POC Glucose (mg/dL) 301 mg/dL (65-99) H 10/09/21 18:12 Calcium 8.5 mg/dL (8.5-10.1) 10/09/21 04:03 Corrected Calcium 9.4 mg/dL (8.5-10.1) 10/09/21 04:03 Magnesium 1.9 mg/dL (1.7-2.9) 10/08/21 03:45 Total Bilirubin 0.20 mg/dL (0.2-1.0) 10/09/21 04:03 AST 17 Units/L (15-37) 10/09/21 04:03 ALT 27 Units/L (12-78) 10/09/21 04:03 Alkaline Phosphatase 73 Units/L (46-116) 10/09/21 04:03 Total Protein 5.9 g/dL (6.4-8.2) L 10/09/21 04:03 Albumin 2.9 g/dL (3.4-5.0) L 10/09/21 04:03 Globulin 3.0 g/dL (2.5-4.5) 10/09/21 04:03 Albumin/Globulin Ratio 1.0 Ratio (1.1-2.1) L 10/09/21 04:03 Specimen Type Clean catch urine 10/07/21 08:15 Urine Color Yellow (YELLOW) 10/07/21 08:15 Urine Appearance Clear (CLEAR) 10/07/21 08:15 Urine pH 6.5 (5.0 - 8.0) 10/07/21 08:15 Ur Specific [place] 1.015 (1.000-1.030) 10/07/21 08:15 Urine Protein Negative (NEGATIVE) 10/07/21 08:15 Urine Glucose (UA) Negative (NEGATIVE) 10/07/21 08:15 Urine Ketones Negative (NEGATIVE) 10/07/21 08:15 Urine Blood Negative (NEGATIVE) 10/07/21 08:15 Urine Nitrite Negative (NEGATIVE) 10/07/21 08:15 Urine Bilirubin Negative (NEGATIVE) 10/07/21 08:15 Urine Urobilinogen Normal (NORMAL) 10/07/21 08:15 Ur Leukocyte Esterase Negative (NEGATIVE) 10/07/21 08:15 SARS-CoV-2 (PCR) Negative (NEGATIVE) 10/07/21 01:00 - Plan (1) S/P hemorrhoidectomy Status: Acute Plan: ROCEPHIN 1G IV DAILY, NORMAL SALINE AT 125 ML/HR, HUMULIN R SLIDING SCALE, OTBS ACHS, MORPHINE 3MG IV Q4H PRN, ZOFRAN 4MG IV Q6H PRN, PERCOCET 5/325MG PO Q4H PRN PAIN, THE POTASSIUM AND MAGNESIUM PROTOCOLS, AND HER HOME MEDICATIONS WERE RESUMED. COMBINATION OF TUCKS PADS WITH PREPARATION H AND VISCOUS LIDOCAINE TO AREA FOUR TIMES A DAY. (2) Rectal bleeding Status: Acute (3) Pain, rectal Status: Acute (4) Diabetes mellitus Status: Chronic Qualifiers: Diabetes mellitus type: type 2 Diabetes mellitus long-term insulin use: with long-term use Diabetes mellitus complication status: with hyperglycemia Qualified Code(s): E11.65 - Type 2 diabetes mellitus with hyperglycemia; Z79.4 - snf (current) use of insulin (5) Hypertension Status: Chronic Qualifiers: Hypertension type: primary hypertension Qualified Code(s): I10 - Essential (primary) hypertension
--- NOTE | 2021-10-09 18:43 | PCM.PROG ---
Progress Note - Progress Note for Day of Date of Exam: 10/09/21 - Subjective Subjective: IS STATUS POST TRADITIONAL HYSTERECTOMY AND LACTERAL INTERNAL SPHINCTEROTOMY ON 09/21/21 WITHOUT COMPLICATIONS. SHE HAS RETURNED TWICE SINCE PROCEDURE WITH COMPLAINTS OF PERSISTENT BLEEDING AND PAIN. SHE WAS ADMITTED FOR FURTHER EVALUATION. TODAY, SHE IS ALERT AND ORIENTED, LYING IN BED ON MORNING ROUNDS. SHE CONTINUES WITH COMPLAINTS OF RECTAL PAIN AND BLEEDING WHEN SHE USES THE BATHROOM. BLOOD IS APPARENTLY BRIGHT RED. SHE DENIES SIGNIFICANT IMPROVEMENT SINCE WE SAW HER YESTERDAY. ON EXAMINATION, HEART IS REGULAR IN RATE AND RHYTHM. BILATERAL LUNGS ARE CLEAR TO AUSCULTATION. ABDOMEN IS ROUND, SOFT, AND NON-TENDER WITH NORMAL BOWEL SOUNDS NOTED IN ALL QUADRANTS. NO UPPER OR LOWER EXTREMITY EDEMA NOTED. HER VITALS THIS MORNING ARE: 98.1-86-20-94%-178/82. LABS WERE OBTAINED. WBC 8.4, RBC 3.50, HGB 10.6, HCT 30.6, SODIUM 142, POTASSIUM 4.0, BUN 17, CREATININE 0.87, GLUCOSE 137, CALCIUM 8.5, AST 17, ALT 27, ALK PHOS 73, TOTAL PROTEIN 5.9, ALBUMIN 2.9. SHE IS CURRENTLY RECEIVING ROCEPHIN 1G IV DAILY, NORMAL SALINE AT 125 ML/HR, HUMULIN R SLIDING SCALE, OTBS ACHS, MORPHINE 3MG IV Q4H PRN, ZOFRAN 4MG IV Q6H PRN, PERCOCET 5/325MG PO Q4H PRN PAIN, THE POTASSIUM AND MAGNESIUM PROTOCOLS, AND HER HOME MEDICATIONS WERE RESUMED. SHE IS ALSO USING A COMBINATION OF TUCKS PADS WITH PREPARATION H AND VISCOUS LIDOCAINE TO AREA FOUR TIMES A DAY. SHE CONTINUES TO REFUSE AN EXAMINATION UNDER ANESTHESIA WITH THE GENERAL SURGEON AT THIS TIME. WE WILL CONTINUE WITH HER CURRENT PLAN OF CARE TODAY. OTHERWISE, WE PLAN TO FOLLOW UP WITH AM LABS TO MONITOR HEMOGLOBIN. TIME SPENT ON CLINICAL ASSESSMENT, REVIEWING LABS AND IMAGING, DECISION MAKING, AND DOCUMENTATION GREATER THAN 45 MINUTES. - Past Medical Family Social History Past Med/Fam/Surg Hx: No changes since H&P Allergies: Allergies aspirin Allergy (Intermediate, Verified 09/21/21 07:05) stomach problems "Stomach feels like it is on fire" - Review of Systems ROS: No change since H&P - Vital Signs and I&O's Vital Signs: Temperature 99.2 F Pulse Rate [Right Brachial] 84 Pulse Rate 79 Respiratory Rate 20 Blood Pressure [Right Arm] 127/74 Blood Pressure [Left Arm] 105/57 Blood Pressure 178/83 O2 Sat by Pulse Oximetry 94 Intake and Output: Intake & Output 10/07/21 10/08/21 10/09/21 10/10/21 11:59 11:59 11:59 11:59 Intake Total 625 / 625 3530 / 3530 3130 / 3130 680 / 680 Balance 625 / 625 3530 / 3530 3130 / 3130 680 / 680 - Physical Exam Oriented: Normal, Time, Person, Place Eyes: Normal Ear: Normal Nose: Normal Throat: Normal Respiratory: Normal Cardiovascular: Normal : Normal Auscultation: Bowel Sounds: Normal Palpation: Normal Tenderness: Normal Skin: Normal Musculoskeletal: Normal Psychiatric: Normal Mood Description: Calm Affect: Normal Speech Pattern: Clear, Appropriate - Laboratory and Diagnostics Result Diagrams: 10/09/21 04:03 10/09/21 04:03 Labs: Laboratory WBC 8.4 X10^3/uL (3.6-10.0) 10/09/21 04:03 RBC 3.50 X10^6/uL (3.5-5.4) 10/09/21 04:03 Hgb 10.6 g/dL (12.0-16.0) L 10/09/21 04:03 Hct 30.6 % (36.0-47.0) L 10/09/21 04:03 MCV 87.2 fL (80.0-100.0) 10/09/21 04:03 MCH 30.4 pg (27.0-34.0) 10/09/21 04:03 MCHC 34.8 g/dL (33.0-35.0) 10/09/21 04:03 RDW 12.7 % (11.6-16.5) 10/09/21 04:03 Plt Count 313 X10^3/uL (150.0-450.0) 10/09/21 04:03 MPV 7.8 fL (7.4-11.0) 10/09/21 04:03 Neut % (Auto) 41.8 % (42.0-75.0) L 10/09/21 04:03 Lymph % (Auto) 44.1 % (21.0-51.0) 10/09/21 04:03 [place] % (Auto) 9.9 % (0.0-13.0) 10/09/21 04:03 Eos % (Auto) 3.5 % (0.9-2.9) H 10/09/21 04:03 Baso % (Auto) 0.7 % (0.2-1.0) 10/09/21 04:03 Neut # (Auto) 3.5 x10^3/uL (2.2-4.8) 10/09/21 04:03 Lymph # (Auto) 3.7 X10^3/uL (1.3-2.9) H 10/09/21 04:03 [place] # (Auto) 0.8 x10^3/uL (0.3-0.8) 10/09/21 04:03 Eos # (Auto) 0.3 x10^3/uL (0.0-0.2) H 10/09/21 04:03 Baso # (Auto) 0.1 X10^3/uL (0.0-0.1) 10/09/21 04:03 Absolute Nucleated RBC 0.0 /100WBC 10/09/21 04:03 PT 13.8 SECONDS (11.8-14.3) 10/06/21 20:17 INR Target Range - 10/06/21 20:17 INR 1.09 (0.8-1.3) 10/06/21 20:17 APTT 24.3 SECONDS (22.9-36.5) 10/06/21 20:17 PTT Comment - 10/06/21 20:17 Sodium 142 mmol/L (136-145) 10/09/21 04:03 Corrected Sodium 143 mmol/L (136-145) 10/09/21 04:03 Potassium 4.0 mmol/L (3.5-5.1) 10/09/21 04:03 Chloride 107 mmol/L (98-107) 10/09/21 04:03 Carbon Dioxide 28.3 mmol/L (21-32) 10/09/21 04:03 BUN 17 mg/dL (7-18) 10/09/21 04:03 Creatinine 0.87 mg/dL (0.55-1.02) 10/09/21 04:03 Est GFR (MDRD) Af Amer > 60 (>60) 10/09/21 04:03 Est GFR (MDRD) Non-Af > 60 (>60) 10/09/21 04:03 Glucose 137 mg/dL (65-99) H 10/09/21 04:03 POC Glucose (mg/dL) 301 mg/dL (65-99) H 10/09/21 18:12 Calcium 8.5 mg/dL (8.5-10.1) 10/09/21 04:03 Corrected Calcium 9.4 mg/dL (8.5-10.1) 10/09/21 04:03 Magnesium 1.9 mg/dL (1.7-2.9) 10/08/21 03:45 Total Bilirubin 0.20 mg/dL (0.2-1.0) 10/09/21 04:03 AST 17 Units/L (15-37) 10/09/21 04:03 ALT 27 Units/L (12-78) 10/09/21 04:03 Alkaline Phosphatase 73 Units/L (46-116) 10/09/21 04:03 Total Protein 5.9 g/dL (6.4-8.2) L 10/09/21 04:03 Albumin 2.9 g/dL (3.4-5.0) L 10/09/21 04:03 Globulin 3.0 g/dL (2.5-4.5) 10/09/21 04:03 Albumin/Globulin Ratio 1.0 Ratio (1.1-2.1) L 10/09/21 04:03 Specimen Type Clean catch urine 10/07/21 08:15 Urine Color Yellow (YELLOW) 10/07/21 08:15 Urine Appearance Clear (CLEAR) 10/07/21 08:15 Urine pH 6.5 (5.0 - 8.0) 10/07/21 08:15 Ur Specific [place] 1.015 (1.000-1.030) 10/07/21 08:15 Urine Protein Negative (NEGATIVE) 10/07/21 08:15 Urine Glucose (UA) Negative (NEGATIVE) 10/07/21 08:15 Urine Ketones Negative (NEGATIVE) 10/07/21 08:15 Urine Blood Negative (NEGATIVE) 10/07/21 08:15 Urine Nitrite Negative (NEGATIVE) 10/07/21 08:15 Urine Bilirubin Negative (NEGATIVE) 10/07/21 08:15 Urine Urobilinogen Normal (NORMAL) 10/07/21 08:15 Ur Leukocyte Esterase Negative (NEGATIVE) 10/07/21 08:15 SARS-CoV-2 (PCR) Negative (NEGATIVE) 10/07/21 01:00 - Plan (1) S/P hemorrhoidectomy Status: Acute Plan: ROCEPHIN 1G IV DAILY, NORMAL SALINE AT 125 ML/HR, HUMULIN R SLIDING SCALE, OTBS ACHS, MORPHINE 3MG IV Q4H PRN, ZOFRAN 4MG IV Q6H PRN, PERCOCET 5/325MG PO Q4H PRN PAIN, THE POTASSIUM AND MAGNESIUM PROTOCOLS, AND HER HOME MEDICATIONS WERE RESUMED. COMBINATION OF TUCKS PADS WITH PREPARATION H AND VISCOUS LIDOCAINE TO AREA FOUR TIMES A DAY. (2) Rectal bleeding Status: Acute (3) Pain, rectal Status: Acute (4) Diabetes mellitus Status: Chronic Qualifiers: Diabetes mellitus type: type 2 Diabetes mellitus terminal gauger supervisor insulin use: with terminal gauger supervisor use Diabetes mellitus complication status: with hyperglycemia Qualified Code(s): E11.65 - Type 2 diabetes mellitus with hyperglycemia; Z79.4 - rat exterminator (current) use of insulin (5) Hypertension Status: Chronic Qualifiers: Hypertension type: primary hypertension Qualified Code(s): I10 - Essential (primary) hypertension
[2021-10-09] MEDS: SNACK - Diabetic Appropriate PO SCH (21:11)
[2021-10-10] MEDS: NS 1,000 ML IV 1,000 ML IV SCH (03:23)
[2021-10-10 04:44] VITALS: BP 141/75
[2021-10-10] MEDS: PREPARATION H RECTAL SCH (05:37)
[2021-10-10 05:42] LABS: BASOPHILS % (AUTO) 0.3 % (0.2-1.0); EOSINOPHILS % (AUTO) 0.4 % (0.9-2.9); HEMATOCRIT 29.1 % (36.0-47.0); HEMOGLOBIN 10.3 g/dL (12.0-16.0); LYMPHOCYTES # (AUTO) 3.7 X10^3/uL (1.3-2.9); LYMPHOCYTES % (AUTO) 29.8 % (21.0-51.0); MEAN CORPUSCULAR HEMOGLOBIN 30.6 pg (27.0-34.0); MEAN CORPUSCULAR HGB CONC 35.3 g/dL (33.0-35.0); MEAN CORPUSCULAR VOLUME 86.7 fL (80.0-100.0); MEAN PLATELET VOLUME 7.8 fL (7.4-11.0); MONOCYTES # (AUTO) 1.2 x10^3/uL (0.3-0.8); MONOCYTES % (AUTO) 9.2 % (0.0-13.0); NEUTROPHILS # (AUTO) 7.6 x10^3/uL (2.2-4.8); NEUTROPHILS % (AUTO) 60.3 % (42.0-75.0); RED BLOOD COUNT 3.36 X10^6/uL (3.5-5.4); RED CELL DISTRIBUTION WIDTH 12.9 % (11.6-16.5); WHITE BLOOD COUNT 12.5 X10^3/uL (3.6-10.0)
[2021-10-10 05:50] LABS: ALANINE AMINOTRANSFERASE 23 Units/L (12-78); ALBUMIN 3.1 g/dL (3.4-5.0); ALKALINE PHOSPHATASE 69 Units/L (46-116); ASPARTATE AMINO TRANSFERASE 15 Units/L (15-37); BLOOD UREA NITROGEN 18 mg/dL (7-18); CALCIUM 8.3 mg/dL (8.5-10.1); CARBON DIOXIDE 29.2 mmol/L (21-32); CHLORIDE 105 mmol/L (98-107); COR NA(FOR HYPERGLY) 142 mmol/L (136-145); CREATININE 0.88 mg/dL (0.55-1.02); SODIUM 141 mmol/L (136-145); TOTAL PROTEIN 6.2 g/dL (6.4-8.2); eGFR NON BLACK RACES > 60 (>60)
[2021-10-10] MEDS: WELLBUTRIN XL 300 MG (DAILY) PO SCH (08:31)
[2021-10-10] MEDS: AMARYL TAB 4 MG PO SCH (08:35)
[2021-10-10] MEDS: HYDROCHLOROTHIAZIDE 25 MG TAB PO SCH (08:36)
[2021-10-10] MEDS: LOPRESSOR TAB 25 MG PO SCH (08:36)
[2021-10-10] MEDS: BETADINE SOLN TOP SCH (08:36)
[2021-10-10] MEDS: PREPARATION H OINT RECTAL SCH (08:37)
[2021-10-10] MEDS: ROCEPHIN VIAL 1 GRAM 1 G in NS 100 ML IV 100 ML IV SCH (08:37)
[2021-10-10] MEDS: PROTONIX TAB 40 MG PO SCH (08:37)
== END 2021-10-10 11:30 | disposition home or self-care (01) ==
LOC: ER 19:24 → MED/SURG 19:24
PROVIDERS: ADMIT Internal Medicine; ATTEND Internal Medicine
DX: Z79.4 Long term (current) use of insulin; Z98.890 Other specified postprocedural states; I10 Essential (primary) hypertension; Z20.822 Contact with and (suspected) exposure to COVID-19; E11.65 Type 2 diabetes mellitus with hyperglycemia; K92.1 Melena; K62.89 Other specified diseases of anus and rectum